=== PATIENT | male | born 2000 | race Asian ===

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

== ENCOUNTER 2019-01-17 16:16 | Emergency (ER) | payer OTHER ==
[~2019-01-17] VITALS: Ht 170.2 cm; Wt 122.5 kg
[2019-01-17 16:20] VITALS: BP 143/90
--- NOTE | 2019-01-17 17:16 | NUR ---
PT AMBULATED TO ED BED 11
--- NOTE | 2019-01-17 17:19 | NUR ---
PT C/O RT FOOT PAIN X 4 DAYS. PT STATED BEEN STANDING AND WALKING LONG TIME AT WORK. DENIES TRAUMA NOR INJURY. DENIES PMH. PT AAO X4, GCS 15, AMBULATORY WITRH STDEAY GAIT. RESPIATIONS EVEN AND UNALBORED. SKIN WARM/PINK/DRY, +PMSC. RT FOOT PAIN 10/10, NO APARENT INJURY. RT PEDALIS PULSE PRESENTS. VSS, DR. MEDNENHALL MADE AWARE OF PT STATUS
--- NOTE | 2019-01-17 19:05 | NUR ---
REPORT GIVEN TO MIKEY PERRY
--- NOTE | 2019-01-17 19:06 | NUR ---
RECEIVED REPORT FROM ORLANDO PLUMMER.
[2019-01-17 20:10] VITALS: BP 137/78
== END 2019-01-17 20:10 | disposition home or self-care (01) ==
LOC: MED 16:16
DX: M79.671 Pain in right foot (principal); Z88.1 Allergy status to other antibiotic agents
CPT/HCPCS: 73630; 99283; Q0092

== ENCOUNTER 2019-02-23 19:43 | Emergency (ER) | payer OTHER ==
[~2019-02-23] VITALS: Ht 172.7 cm; Wt 93.9 kg
[2019-02-23 19:47] VITALS: BP 140/77
--- NOTE | 2019-02-23 19:47 | NUR ---
TO BED # 09 AMBULATORY
--- NOTE | 2019-02-23 19:47 | NUR ---
PT PRESENTS TO ED WITH COUGH X1 MONTH, STUFFY NOSE, DIFFICULTY BREATHING. LUNGS CLEAR BILAT THROUGHOUT. NON-PRODUCTIVE COUGH. NO PAST MEDICAL HX. O2SAT 99% RA. NO RESPIRATORY DISTRESS. DIFFICULTY SLEEPING D/T CONSTANT COUGH. VSS. POSITIONED IN BED WITH MAYRA ELEVATED. X1 SIDE RAIL UP. ER MD AWARE. CONTINUE TO MONITOR.
[2019-02-23 20:32] VITALS: BP 128/65
--- NOTE | 2019-02-23 20:32 | NUR ---
DISCHARGE PAPERS GIVEN TO PT. COUGH PRESENT WITH LUNGS CLEAR BILAT THROGHOUT. VSS. RX OF PROMETHAZINE/DEXTROMETHORPHAN, ALBUTEROL INH, AND FLONASE GIVEN. SIDE EFFECTS EXPLAINED. INSTRUCTED TO F/U WITH WITH PCP AND WHEN TO RETURN TO ER. ALL QUESTIONS ANSWERED.
== END 2019-02-23 20:32 | disposition home or self-care (01) ==
LOC: MED 19:43
DX: J40 Bronchitis, not specified as acute or chronic (principal); Z88.1 Allergy status to other antibiotic agents
CPT/HCPCS: 71045; 99283; Q0092

== ENCOUNTER 2019-03-10 17:43 | Emergency (ER) | payer OTHER ==
[~2019-03-10] VITALS: Ht 170.2 cm; Wt 122.6 kg
[2019-03-10 18:10] VITALS: BP 155/119
[2019-03-10] MEDS ORDERED: DEXAMETHASONE 10 MG/ML VIAL IM ONE (20:45)
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
[2019-03-10 21:15] VITALS: BP 121/78
--- NOTE | 2019-03-10 21:15 | NUR ---
Patient discharged with v/s stable. Written and verbal after care instructions given and explained. Patient alert, oriented and verbalized understanding of instructions. Ambulatory with steady gait. All questions addressed prior to discharge. ID band removed. Patient advised to follow up with PMD. Rx of TESSALON PENNINGTON, OFLOXACIN, PREDNISONE, CETRIZINE HCL/ given. Patient educated on indication of medication including possible reaction and side effects. Opportunity to ask questions provided and answered.
== END 2019-03-10 21:15 | disposition home or self-care (01) ==
LOC: MED 17:43
DX: T16.1XXA Foreign body in right ear, initial encounter (principal); H60.91 Unspecified otitis externa, right ear; J30.9 Allergic rhinitis, unspecified; Z88.1 Allergy status to other antibiotic agents; X58.XXXA Exposure to other specified factors, initial encounter; Y93.89 Activity, other specified; Y92.89 Other specified places as the place of occurrence of the external cause; Y99.8 Other external cause status
CPT/HCPCS: 96372; 99283; J1100

== ENCOUNTER 2019-11-07 13:31 | Emergency (ER) | payer SELFPAY ==
[~2019-11-07] VITALS: Ht 170.2 cm; Wt 108.9 kg
[2019-11-07 13:39] VITALS: BP 145/92
--- NOTE | 2019-11-07 14:26 | NUR ---
19 Y/O MALE PRESENTS WITH COUGH LASTING ONE MONTH PROGRESSED TO COUGH UP STREAKS OF BLOOD. PRODUCTIVE COUGH WITH THICK FROTHY MUCUS. DENIES SOB/ CHEST PAIN/ CHILLS. LUNG SOUNDS CLEAR IN BILAT LOBES. RESP EVEN AND UNLABORED. NO ACCESSORY MUSCLE USE NOTED. DENIES FEVER/ N/V/D. AAOX3. SKIN INTACT, COOL, DRY. NO PMH ALLERGIES: AMOXICILLIN
--- NOTE | 2019-11-07 14:37 | NUR ---
PT BACK FROM XRAY
[2019-11-07] MEDS ORDERED: DEXAMETHASONE 10 MG/ML VIAL IM ONE (15:05)
[2019-11-07 15:13] VITALS: BP 145/92
--- NOTE | 2019-11-07 15:14 | NUR ---
Patient discharged with v/s stable. Written and verbal after care instructions given and explained. Patient alert, oriented and verbalized understanding of instructions. Ambulatory with steady gait. All questions addressed prior to discharge. ID band removed. Patient advised to follow up with PMD. Rx of KATHYA WOODS, IBUPROFEN given. Patient educated on indication of medication including possible reaction and side effects. Opportunity to ask questions provided and answered.
== END 2019-11-07 15:14 | disposition home or self-care (01) ==
LOC: MED 13:31
DX: R05 Cough (principal); Z88.1 Allergy status to other antibiotic agents
CPT/HCPCS: 71046; 96372; 99283; J1100

== ENCOUNTER 2021-05-14 01:44 | Emergency (ER) | payer MEDICAID ==
[~2021-05-14] VITALS: Ht 170.2 cm; Wt 117.9 kg
[2021-05-14 02:00] VITALS: BP 129/79
--- NOTE | 2021-05-14 02:03 | NUR ---
TO LOBBY A/W BED AMBULATORY
[2021-05-14] MEDS ORDERED: methylPREDNISolone SS 125 MG in WATER STERILE 2 ML IM ONE (03:05)
[2021-05-14] MEDS ORDERED: HYDROXYZINE HYDROCHLORIDE 25 MG TAB PO ONE (03:05)
[2021-05-14] MEDS ORDERED: FAMOTIDINE 20 MG TAB PO ONE (03:05)
[2021-05-14] MEDS ORDERED: WATER STERILE 10 ML MC ONE (03:35)
[2021-05-14] MEDS ORDERED: methylPREDNISolone SS 125 MG/2 ML VIAL ONE (03:35)
[2021-05-14] MEDS ORDERED: FAMO-90 PO ×2 (03:55→03:58)
[2021-05-14] MEDS ORDERED: PRED20TA5 PO (03:58)
[2021-05-14] MEDS ORDERED: CETI10TA73 PO (03:59)
[2021-05-14] MEDS ORDERED: EPIN1KIT31 IM (04:02)
--- NOTE | 2021-05-14 04:07 | NUR ---
d/c with VSS. d/c education given. opportunity to ask questions given and answered. rx of pepcid, prednisone, epipen and cetirizine.
[2021-05-14 04:30] VITALS: BP 141/63
== END 2021-05-14 04:07 | disposition home or self-care (01) ==
LOC: MED 01:44
DX: L50.9 Urticaria, unspecified (principal); Z88.1 Allergy status to other antibiotic agents; Z79.899 Other long term (current) drug therapy
CPT/HCPCS: 96372; 99283; J2930

== ENCOUNTER 2021-06-03 18:45 | Emergency (ER) | payer MEDICAID ==
[~2021-06-03] VITALS: Ht 170.2 cm; Wt 117.9 kg
[~2021-06-03 18:45] MED LIST: CETI10TA73 PO; EPIN1KIT31 IM; FAMO-90 PO; PRED20TA5 PO
--- NOTE | 2021-06-03 18:58 | NUR ---
Carrie swab collected and given to Garrett AppSame.
[2021-06-03 19:01] VITALS: BP 152/95
[2021-06-03 20:15] VITALS: BP 128/83
--- NOTE | 2021-06-03 20:15 | NUR ---
Patient discharged with v/s stable. Written and verbal after care instructions given and explained by DR. COWART. Patient verbalized understanding. Ambulatory with steady gait. All questions addressed prior to discharge. Advised to follow up with PMD.
== END 2021-06-03 20:15 | disposition home or self-care (01) ==
LOC: MED 18:45
DX: F41.9 Anxiety disorder, unspecified (principal); Z20.822 Contact with and (suspected) exposure to COVID-19
CPT/HCPCS: 71045; 93005; 99285

== ENCOUNTER 2021-10-27 09:59 | Emergency (ER) | payer MEDICAID, SELFPAY ==
[~2021-10-27] VITALS: Ht 170.2 cm; Wt 122.5 kg
[~2021-10-27 09:59] MED LIST changes: +CETI-366 PO; -CETI10TA73 PO
[2021-10-27 11:12] VITALS: BP 148/83
--- NOTE | 2021-10-27 11:19 | NUR ---
TENT 2.
[2021-10-27] MEDS ORDERED: DEC4 PO (11:46)
--- NOTE | 2021-10-27 11:55 | NUR ---
NOVEL SWAB COLLECTED AND WALKED TO LAB
[2021-10-27 12:21] VITALS: BP 148/83
--- NOTE | 2021-10-27 12:21 | NUR ---
Patient discharged with v/s stable. Written and verbal after care instructions ABOUT COVID-19 given and explained. Patient alert, oriented and verbalized understanding of instructions. Ambulatory with steady gait. All questions addressed prior to discharge. ID band removed. Patient advised to follow up with PMD. Rx of DECADRON given. Patient educated on indication of medication including possible reaction and side effects. Opportunity to ask questions provided and answered.
== END 2021-10-27 12:21 | disposition home or self-care (01) ==
LOC: MED 09:59
DX: U07.1 COVID-19 (principal); Z88.1 Allergy status to other antibiotic agents
CPT/HCPCS: 99283; U0003

== ENCOUNTER 2023-04-18 17:15 | Emergency (ER) | payer SELFPAY ==
[~2023-04-18] VITALS: Ht 167.6 cm; Wt 90.7 kg
[~2023-04-18 17:15] MED LIST changes: +DEC4 PO
[2023-04-18 17:48] VITALS: BP 120/84; PULSE 100; RESP 20; TEMP 99.1; O2SAT 96
--- NOTE | 2023-04-18 18:00 | NUR ---
BACK IN WAITING AREA
[2023-04-18] MEDS ORDERED: IBUP-2213 PO (18:21)
[2023-04-18] MEDS ORDERED: BENZ-300 PO (18:21)
[2023-04-18 19:21] VITALS: BP 120/84; PULSE 100; RESP 20; TEMP 99.1; O2SAT 96
--- NOTE | 2023-04-18 19:21 | NUR ---
Patient discharged with v/s stable. Written and verbal after care instructions given and explained. Patient alert, oriented and verbalized understanding of instructions. Ambulatory with steady gait. All questions addressed prior to discharge. ID band removed. Patient advised to follow up with PMD. Rx of CEPACOL, IBUPROFEN given. Patient educated on indication of medication including possible reaction and side effects. Opportunity to ask questions provided and answered.
== END 2023-04-18 19:21 | disposition home or self-care (01) ==
LOC: MED 17:15
DX: J02.9 Acute pharyngitis, unspecified (principal); R05.9 Cough, unspecified; H92.03 Otalgia, bilateral; F17.200 Nicotine dependence, unspecified, uncomplicated; Z88.1 Allergy status to other antibiotic agents; Z79.899 Other long term (current) drug therapy
CPT/HCPCS: 99282

== ENCOUNTER 2023-10-08 15:33 | Emergency (ER) | payer SELFPAY ==
[~2023-10-08] VITALS: Ht 170.2 cm; Wt 149.9 kg
[~2023-10-08 15:33] MED LIST changes: +BENZ-300 PO; +IBUP-2213 PO
[2023-10-08 16:15] VITALS: BP 126/75; PULSE 106; RESP 19; TEMP 98.6; O2SAT 100
[2023-10-08] MEDS ORDERED: PROM118S5 PO (17:48)
[2023-10-08] MEDS ORDERED: IBUP-2218 PO (17:48)
== END 2023-10-08 18:23 | disposition home or self-care (01) ==
LOC: MED 15:33
DX: J06.9 Acute upper respiratory infection, unspecified (principal); R03.0 Elevated blood-pressure reading, without diagnosis of hypertension; Z79.899 Other long term (current) drug therapy; Z88.1 Allergy status to other antibiotic agents
CPT/HCPCS: 99281